=== PATIENT | female | born 1970 | race Hispanic/Latino ===

== ENCOUNTER → 2021-06-20 | Day surgery (SDC) | payer OTHER ==
[~2021-06-20] MED LIST: ASPIRIN81 MG PO; HYOSCYAMINE SULFATE 0.5 MG/ML INJ ONE; LIDOCAINE HCL 2% LOCAL INJ 5 ML SDV VIAL INJ ONE; PROPOFOL IV EMULSION 10 MG/ML 20 ML VIAL ONE; VITAMIN D PO
[2021-06-20 11:50] VITALS: BP 125/85
== END | disposition home or self-care (01) ==
LOC: OR 09:01
PROVIDERS: ATTEND Internal Medicine Gastroenterology
DX: Z12.11 Encounter for screening for malignant neoplasm of colon (principal); K59.09 Other constipation; K64.8 Other hemorrhoids; Z68.27 Body mass index [BMI] 27.0-27.9, adult; R10.9 Unspecified abdominal pain; Z90.49 Acquired absence of other specified parts of digestive tract; Z01.810 Encounter for preprocedural cardiovascular examination; Z01.812 Encounter for preprocedural laboratory examination; Z20.822 Contact with and (suspected) exposure to COVID-19
CPT/HCPCS: 45378; 93005; J1980; J2001; U0002